=== PATIENT | male | born 1970 | race African-American/Black ===

== ENCOUNTER → 2017-10-25 | Outpatient (CLI) | payer OTHER ==
[~2017-10-25] VITALS: Ht 182.9 cm; Wt 111.1 kg
[~2017-10-25] MED LIST: CLARITIN10 M1; GILTUSS TR TAB1 EACH PO; INTESTINEX PO; METOPROLOL SUCC25 MG
== END | disposition home or self-care (01) ==
LOC: PPHC 17:11
DX: J00 Acute nasopharyngitis [common cold] (principal)

== ENCOUNTER 2019-01-07 10:18 | Outpatient (CLI) | payer OTHER | END 2019-01-07 10:27 | disposition home or self-care (01) | LOC: RAD 10:18 | DX: R10.9 Unspecified abdominal pain (principal) ==

== ENCOUNTER 2019-01-07 11:11 | Outpatient (CLI) | payer OTHER | END 2019-01-07 11:34 | disposition home or self-care (01) | LOC: LAB 11:11 | DX: E03.8 Other specified hypothyroidism (principal); E55.9 Vitamin D deficiency, unspecified; E78.2 Mixed hyperlipidemia; Z12.11 Encounter for screening for malignant neoplasm of colon; Z13.1 Encounter for screening for diabetes mellitus; Z12.5 Encounter for screening for malignant neoplasm of prostate; R23.3 Spontaneous ecchymoses ==

== ENCOUNTER 2023-04-15 08:37 | Emergency (ER) | payer OTHER ==
[~2023-04-15] VITALS: Ht 185.4 cm; Wt 113.4 kg
[2023-04-15] MEDS ORDERED: NORVASC2.5 M1 PO (08:49)
[2023-04-15] MEDS ORDERED: ZITHROMAX500 MG PO (11:26)
== END 2023-04-15 11:33 | disposition home or self-care (01) ==
LOC: ER 08:37
DX: R53.81 Other malaise (principal); J06.9 Acute upper respiratory infection, unspecified; Z20.822 Contact with and (suspected) exposure to COVID-19

== ENCOUNTER 2023-10-17 09:41 | Emergency (ER) | payer OTHER ==
[~2023-10-17] VITALS: Ht 185.4 cm; Wt 116.1 kg
[~2023-10-17 09:41] MED LIST changes: +NORVASC2.5 M1 PO; +ZITHROMAX500 MG PO
[2023-10-17 12:57] LABS: HEMATOCRIT 44.9 % (39.0-48.0); HEMOGLOBIN 15.5 g/dL (13-16.00); MEAN CELL VOLUME 91.4 fL (80.0-100.00); MEAN CORPUSCULAR HEMOGLOBIN 31.5 pg (27.00-32.0); MEAN CORPUSCULAR HGB CONC 34.5 g/dl (32.0-36.0); PLATELET COUNT 152 K/uL (150-450); RED BLOOD COUNT 4.92 M/uL (4.00-6.00); RED CELL DISTRIBUTION WIDTH 13.3 % (11.5-14.5)
== END 2023-10-17 14:29 | disposition home or self-care (01) ==
LOC: ER 09:41
PROVIDERS: General Practice
DX: B34.9 Viral infection, unspecified (principal); I49.8 Other specified cardiac arrhythmias; I10 Essential (primary) hypertension; Z20.822 Contact with and (suspected) exposure to COVID-19

== ENCOUNTER 2024-08-26 10:45 | Emergency (ER) | payer OTHER ==
[~2024-08-26] VITALS: Ht 185.4 cm; Wt 115.7 kg
[~2024-08-26 10:45] MED LIST changes: +ZYRTEC10 MG
[2024-08-26] MEDS ORDERED: ACETAMINOPHEN 500 MG GEL..CAP PO ONE (14:00)
[2024-08-26] MEDS ORDERED: FAMOTIDINE/PF 20 MG/2 ML VIAL IV PUSH ONE (14:00)
[2024-08-26] MEDS ORDERED: LACTOBACILLUS ACIDOPHILUS 1 CAP CAP PO ONE (14:00)
[2024-08-26 14:17] LABS: HEMATOCRIT 45.4 % (39.0-48.0); HEMOGLOBIN 15.9 g/dL (13-16.00); MEAN CELL VOLUME 90.2 fL (80.0-100.00); MEAN CORPUSCULAR HEMOGLOBIN 31.6 pg (27.00-32.0); PLATELET COUNT 155 K/uL (150-450); RED BLOOD COUNT 5.04 M/uL (4.00-6.00); RED CELL DISTRIBUTION WIDTH 13.6 % (11.5-14.5)
[2024-08-26 14:36] LABS: CALCIUM 9.4 mg/dL (8.5-10.1); CREATININE SERUM 1.02 mg/dL (0.70-1.30); GFR 76.11; POTASSIUM 4.1 mEq/L (3.5-5.1)
[2024-08-26] MEDS ORDERED: INTESTINEX680 M1 PO (14:50)
[2024-08-26] MEDS ORDERED: NASONEX 24HR AL17 ML IH (14:50)
[2024-08-26] MEDS ORDERED: AMOX1TAB5 PO (14:50)
== END 2024-08-26 15:02 | disposition home or self-care (01) ==
LOC: ER 10:47
PROVIDERS: General Practice
DX: B34.9 Viral infection, unspecified (principal); I10 Essential (primary) hypertension; Z20.822 Contact with and (suspected) exposure to COVID-19